=== PATIENT | male | born 1985 | race Caucasian/White ===

== ENCOUNTER → 2021-04-19 | Outpatient (CLI) | payer OTHER ==
--- NOTE | 2021-04-19 19:11 | RAD ---
XR FINGER(S)_RIGHT 2+VIEWS, XR RT WRIST 3VIEWS 04/19/2021 6:30 PM INDICATION: First digit pain COMPARISON: None available TECHNIQUE: 3 views of the right wrist, single view of the right hand and 2 dedicated views of the ri ght first digit are provided. FINDINGS/ IMPRESSION: There is no acute fracture or dislocation. Joint spaces are maintained. Bone mineralization is within normal limits. Regional soft tissues are within normal limits. There is no soft tissue gas or osseou s erosion. No radiopaque foreign body. Electronically signed by: Leny Reynolds MD (04/19/2021 7:09 PM) [facility]
== END ==
LOC: PMG 18:26
PROVIDERS: ATTEND Nurse Practitioner Family
DX: S63.501A Unspecified sprain of right wrist, initial encounter (principal); M79.644 Pain in right finger(s); X58.XXXA Exposure to other specified factors, initial encounter; Y93.89 Activity, other specified; Y92.89 Other specified places as the place of occurrence of the external cause; Y99.8 Other external cause status
CPT/HCPCS: 73110; 73140